=== PATIENT | female | born 1935 | race Caucasian/White ===

== ENCOUNTER → 2017-08-18 | Outpatient (CLI) | payer MEDICARE, OTHER ==
[2017-08-19 09:08] LABS: ALANINE AMINOTRANSFERASE 28 U/L (9-52); ALBUMIN 4.3 g/dL (3.5-5.0); ALKALINE PHOSPHATASE 46 U/L (38-126); ANION GAP 10 (5-19); ASPARTATE AMINO TRANSFERASE 31 U/L (14-36); BILIRUBIN,DIRECT 0.4 mg/dL (0.0-0.4); BILIRUBIN,TOTAL 0.5 mg/dL (0.2-1.3); BLOOD UREA NITROGEN 23 mg/dL (7-20); CALCIUM 9.9 mg/dL (8.4-10.2); CARBON DIOXIDE 27 mmol/L (22-30); CHLORIDE 103 mmol/L (98-107); CHOLESTEROL 189.07 mg/dL (0-200); GLUCOSE 179 mg/dL (75-110); SODIUM 140.2 mmol/L (137-145); TOTAL PROTEIN 6.8 g/dL (6.3-8.2); TRIGLYCERIDES 103 mg/dL (<150)
[2017-08-19 09:19] LABS: DIRECT LDL 81 mg/dL (<100)
[2017-08-20 11:40] LABS: CREATININE URINE 137.7 mg/dL (Not Estab.)
== END ==
LOC: OD 14:35
PROVIDERS: ATTEND Internal Medicine Cardiovascular Disease
DX: E78.2 Mixed hyperlipidemia (principal); I12.9 Hypertensive chronic kidney disease with stage 1 through stage 4 chronic kidney disease, or unspecified chronic kidney disease; E11.22 Type 2 diabetes mellitus with diabetic chronic kidney disease; N18.3 Chronic kidney disease, stage 3 (moderate); Z79.899 Other long term (current) drug therapy
CPT/HCPCS: 36415; 80048; 80061; 80076; 82043; 82570; 83036; 83735

== ENCOUNTER → 2018-02-10 | Outpatient (CLI) | payer MEDICARE, OTHER ==
[2018-02-10 11:08] LABS: ALANINE AMINOTRANSFERASE 23 U/L (9-52); ALBUMIN 3.9 g/dL (3.5-5.0); ALKALINE PHOSPHATASE 44 U/L (38-126); ANION GAP 12 (5-19); ASPARTATE AMINO TRANSFERASE 26 U/L (14-36); BILIRUBIN,DIRECT 0.2 mg/dL (0.0-0.4); BILIRUBIN,TOTAL 0.5 mg/dL (0.2-1.3); BLOOD UREA NITROGEN 31 mg/dL (7-20); CALCIUM 9.7 mg/dL (8.4-10.2); CARBON DIOXIDE 28 mmol/L (22-30); CHLORIDE 105 mmol/L (98-107); CHOLESTEROL 155.72 mg/dL (0-200); GLUCOSE 159 mg/dL (75-110); POTASSIUM 4.8 mmol/L (3.6-5.0); SODIUM 144.5 mmol/L (137-145); TOTAL PROTEIN 6.6 g/dL (6.3-8.2); TRIGLYCERIDES 91 mg/dL (<150)
[2018-02-10 11:19] LABS: DIRECT LDL 62 mg/dL (<100)
== END ==
LOC: OD 09:11
PROVIDERS: ATTEND Internal Medicine Cardiovascular Disease
DX: I10 Essential (primary) hypertension (principal); E78.2 Mixed hyperlipidemia; E83.42 Hypomagnesemia; E11.9 Type 2 diabetes mellitus without complications; Z79.899 Other long term (current) drug therapy
CPT/HCPCS: 36415; 80048; 80061; 80076; 83036; 83735

== ENCOUNTER → 2018-08-23 | Outpatient (CLI) | payer MEDICARE, OTHER ==
[2018-08-23 10:01] LABS: ALANINE AMINOTRANSFERASE 35 U/L (9-52); ALBUMIN 4.4 g/dL (3.5-5.0); ALKALINE PHOSPHATASE 63 U/L (38-126); ANION GAP 12 (5-19); ASPARTATE AMINO TRANSFERASE 36 U/L (14-36); BILIRUBIN,DIRECT 0.2 mg/dL (0.0-0.4); BILIRUBIN,TOTAL 0.3 mg/dL (0.2-1.3); BLOOD UREA NITROGEN 34 mg/dL (7-20); CALCIUM 10.3 mg/dL (8.4-10.2); CARBON DIOXIDE 29 mmol/L (22-30); CHLORIDE 101 mmol/L (98-107); CHOLESTEROL 175.46 mg/dL (0-200); GLUCOSE 228 mg/dL (75-110); POTASSIUM 4.8 mmol/L (3.6-5.0); SODIUM 141.8 mmol/L (137-145); TOTAL PROTEIN 7.1 g/dL (6.3-8.2); TRIGLYCERIDES 88 mg/dL (<150)
[2018-08-23 10:12] LABS: DIRECT LDL 89 mg/dL (<100)
== END ==
LOC: OD 08:42
PROVIDERS: ATTEND Internal Medicine Cardiovascular Disease
DX: E78.2 Mixed hyperlipidemia (principal); I10 Essential (primary) hypertension; E83.42 Hypomagnesemia; Z79.899 Other long term (current) drug therapy
CPT/HCPCS: 36415; 80048; 80061; 80076; 83735

== ENCOUNTER → 2018-09-19 | Outpatient (CLI) | payer MEDICARE, OTHER ==
[2018-09-19 13:19] LABS: ALANINE AMINOTRANSFERASE 34 U/L (9-52); ALBUMIN 4.1 g/dL (3.5-5.0); ALKALINE PHOSPHATASE 63 U/L (38-126); ASPARTATE AMINO TRANSFERASE 36 U/L (14-36); BILIRUBIN,DIRECT 0.1 mg/dL (0.0-0.4); BILIRUBIN,TOTAL 0.4 mg/dL (0.2-1.3); TOTAL PROTEIN 6.7 g/dL (6.3-8.2)
[2018-09-19 14:11] LABS: HEMATOCRIT 37.2 % (36.0-47.0); HEMOGLOBIN 12.3 g/dL (12.0-15.5); MEAN CORPUSCULAR HEMOGLOBIN 28.4 pg (27.0-33.4); MEAN CORPUSCULAR HGB CONC 33.1 g/dL (32.0-36.0); MEAN CORPUSCULAR VOLUME 86 fl (80-97); PLATELET COUNT 297 10^3/uL (150-450); RED BLOOD COUNT 4.33 10^6/uL (3.72-5.28); WHITE BLOOD COUNT 5.5 10^3/uL (4.0-10.5)
[2018-09-21 17:32] LABS: ANION GAP 9 (5-19); BLOOD UREA NITROGEN 42 mg/dL (7-20); CALCIUM 10.7 mg/dL (8.4-10.2); CARBON DIOXIDE 30 mmol/L (22-30); CHLORIDE 99 mmol/L (98-107); GLUCOSE 315 mg/dL (75-110); POTASSIUM 4.7 mmol/L (3.6-5.0); SODIUM 138.1 mmol/L (137-145)
== END ==
LOC: OD 11:48
PROVIDERS: ATTEND Internal Medicine Cardiovascular Disease
DX: E78.2 Mixed hyperlipidemia (principal); E83.42 Hypomagnesemia; E11.9 Type 2 diabetes mellitus without complications; R94.5 Abnormal results of liver function studies; Z79.899 Other long term (current) drug therapy
CPT/HCPCS: 36415; 80048; 80076; 82607; 83036; 83735; 84443; 85027

== ENCOUNTER 2018-11-11 20:46 | Emergency (ER) | payer MEDICARE, OTHER ==
--- NOTE | 2018-11-11 21:45 | RADIOLOGY REPORT (SQ) ---
EXAM DESCRIPTION: XR SHOULDER 2 OR MORE VIEWS COMPLETED DATE/TME: 11/11/2018 00:00 CLINICAL HISTORY: 83 years Female fell down steps yesterday COMPARISON: None. TECHNIQUE: LEFT SHOULDER three view FINDINGS: No acute fractures or dislocations identified. Acromioclavicular joint appears maintained. There is a nodular area in the left upper lobe with central lucency. It is uncertain whether this represents a lesion involving the anterior left rib with that this represents an underlying pulmonary nodule. Recommend CT of the chest. This measures 2.4 cm. IMPRESSION: No acute fracture or dislocation identified. Question cavitary lung lesion in the left upper lobe versus overlying abnormality in the anterior left rib. These changes are new when compared to the study from 2013. Recommend CT
[2018-11-11] MEDS ORDERED: INSULIN REG, HUMAN 100 UNIT/ML 3 ML VIAL (PYX) SUBCUT ONE (22:40)
[2018-11-11 22:55] LABS: ANION GAP 10 (5-19); BLOOD UREA NITROGEN 45 mg/dL (7-20); CALCIUM 9.7 mg/dL (8.4-10.2); CARBON DIOXIDE 30 mmol/L (22-30); CHLORIDE 94 mmol/L (98-107); POTASSIUM 4.7 mmol/L (3.6-5.0); SODIUM 134.3 mmol/L (137-145)
[2018-11-11] MEDS ORDERED: RINGERS SOLUTION,LACTATED 500 ML IV ONE ×2 (22:58→23:28)
--- NOTE | 2018-11-11 22:59 | ER Document Report ---
ED General - General Chief Complaint: Shoulder Injury Stated Complaint: FALL/LEFT SHOULDER INJURY Time Seen by Provider: 11/11/18 21:24 Primary Care Provider: GLENN MADRID MD [Primary Care Provider] - Follow up as needed Notes: Patient is an 83-year-old female past medical history of [id number] diabetes, presents complaining after mechanical fall onto her left shoulder approximate 24 hours ago. Fell approximately 3 steps landing directly onto the left shoulder and did not hit any other part of her body. Since that time is had a dull, throbbing, constant pain to the left shoulder worsened by range of motion. Has not tried nothing for improvement in the pain. Pain is regarded as moderate in nature. No history of similar injuries in the past. She is right- hand dominant. She came to the emergency department primarily tonight because her daughter was worried about her having high blood sugar at home today up to 410. Patient states that her blood sugars are normally well controlled stating that it was as low as 116 yesterday. She does take metformin but does not take any other form of diabetic control medication. She denies chest pain, shortness of breath, syncope, head or neck trauma. No weakness, numbness or confusion. Has not seen her primary care doctor regarding today's concerns. TRAVEL OUTSIDE OF THE [place] IN LAST 30 DAYS: No - Related Data Allergies/Adverse Reactions: prochlorperazine edisylate [From Compazine] Allergy (Verified 07/12/14 13:40) RASH prochlorperazine maleate [From Compazine] Allergy (Verified 07/12/14 13:40) RASH ether Allergy (Uncoded 07/12/14 13:40) Past Medical History - General Information source: Patient, Relative - Social History Smoking Status: Never Smoker Frequency of alcohol use: None Drug Abuse: None Lives with: Family Family History: CAD Patient has suicidal ideation: No Patient has homicidal ideation: No - Past Medical History Cardiac Medical History: Reports: Hx Hypercholesterolemia, Hx Hypertension Denies: Hx Coronary Artery Disease, Hx Heart Attack Pulmonary Medical History: Denies: Hx Asthma, Hx Bronchitis, Hx COPD, Hx Pneumonia Neurological Medical History: Denies: Hx Cerebrovascular Accident, Hx Seizures Endocrine Medical History: Reports: Hx Diabetes Mellitus Type 2 Renal/ Medical History: Denies: Hx Peritoneal Dialysis GI Medical History: Denies: Hx Hepatitis, Hx Hiatal Hernia, Hx Ulcer Musculoskeletal Medical History: Reports Hx Arthritis - FINGERS Infectious Medical History: Denies: Hx Hepatitis Past Surgical History: Reports: Hx Cholecystectomy, Hx Hysterectomy, Hx Orthopedic Surgery. Denies: Hx Mastectomy, Hx Open Heart Surgery, Hx Pacemaker - Immunizations Hx Diphtheria, Pertussis, Tetanus Vaccination: Yes Hx Pneumococcal Vaccination: 06/28/10 Review of Systems - Review of Systems Notes: Constitutional: Negative for fever. Eyes: Negative for visual changes. ENT: Negative for facial injury Cardiovascular: Negative for chest injury. Respiratory: Negative for shortness of breath. Gastrointestinal: Negative for abdominal injury. Genitourinary: Negative for genital injury Musculoskeletal: Positive for left shoulder injury Skin: Negative for laceration/abrasions. Neurological: Negative for head injury. Physical Exam - Vital signs Vitals: Temp Pulse Resp BP Pulse Ox 97.8 F 63 16 125/46 L 100 11/11/18 21:12 11/11/18 21:12 11/11/18 21:12 11/11/18 21:12 11/11/18 21:12 Interpretation: Normal Notes: PHYSICAL EXAMINATION: GENERAL: Well-appearing, no acute distress. Somewhat frail HEAD: Atraumatic, normocephalic. EYES: Pupils equal round and reactive to light, extraocular movements intact, sclera anicteric, conjunctiva are normal. ENT: nares patent, no oral pharyngeal trauma. No hemotympanum, no Oscar's sign, no raccoon eyes. NECK: No midline cervical spine tenderness. Patient able to move their head to 45 bilaterally without any discomfort. LUNGS: Breath sounds clear to auscultation bilaterally and equal. No wheezes rales or rhonchi. HEART: Regular rate and rhythm without murmurs. CHEST WALL: No ecchymosis over the chest wall. ABDOMEN: Soft, nontender, normoactive bowel sounds. No guarding, no rebound. No abdominal bruising EXTREMITIES: Normal range of motion, although has pain with range of motion testing on the left shoulder, no pitting or edema. No long bone deformities. BACK: No midline spinal tenderness, step-offs, or deformities. NEUROLOGICAL: Face symmetric. Tongue protrudes midline. Extraocular motions intact. Pupils are 2 mm and equally reactive. Normal speech, normal gait. 5 out of 5 strength in both the distal and proximal upper and lower extremities bilaterally. Sensation is grossly intact throughout. PSYCH: Normal mood, normal affect. SKIN: Warm, Dry, normal turgor, no rashes or lesions noted. Course - Re-evaluation Re-evalutation: 11/11/18 22:57 Patient presents after mechanical fall onto her left shoulder approximately 24 hours ago. X-ray without any evidence of acute fracture dislocation. Shoulder range of motion is intact both actively and passively although with pain. 5 out of 5 biceps and triceps strength. RMU motor and sensory distribution is intact including against resistance on motor testing. X-ray does incidentally noticed a possible cavitary lesion concerning for malignancy and CT chest was recommended. I did disclose this to the family is requesting the CT chest be performed now. The patient has also been noted to have hyperglycemia. Blood work is pending to determine whether or not there is any concern for HHS or DKA although clinically the patient appears very well and I do not clinically suspect either of these diagnoses. Subcutaneous insulin and IV fluids will be administered. 11/12/18 00:[address] does not demonstrate any evidence of malignancy although shows multiple cavitary lesion. The patient is not having any respiratory symptoms that would suggest an atypical lung infection. I do not believe any immediate treatment is indicated at this time for these incidental findings and I have provided the patient and her family with a copy of the CT report and advised that she requires close outpatient follow-up and likely pulmonary consultation regarding these findings. Patient's A1c is 13 going against the patient's report that she generally has well-controlled blood sugars. I suspect the patient has long- standing uncontrolled blood sugars as indicated by this A1c. Her blood sugar has improved here with IV fluids and insulin. At this time will discharge with return precautions and follow-up recommendations. Verbal discharge instructions given a the bedside and opportunity for questions given. Medication warnings reviewed. Patient is in agreement with this plan and has verbalized understanding of return precautions and the need for primary care follow-up in the next 24-72 hours. - Vital Signs Vital signs: Temp Pulse Resp BP Pulse Ox 97.8 F 63 16 125/46 L 100 11/11/18 21:12 11/11/18 21:12 11/11/18 21:12 11/11/18 21:12 11/11/18 21:12 - Laboratory Result Diagrams: 11/11/18 22:20 Laboratory results interpreted by me: 11/11/18 11/11/18 22:20 22:20 Sodium 134.3 L Chloride 94 L BUN 45 H Creatinine 1.39 H Est GFR ( Amer) 44 L Est GFR (Non-Af Amer) 36 L Glucose 646 H* Hemoglobin A1c % 13.0 H - Diagnostic Test Radiology reviewed: Image reviewed, Reports reviewed Radiology results interpreted by me: 11/11/18 22:59 Left shoulder x-ray: No acute fracture or dislocation Discharge - Discharge Clinical Impression: Pulmonary cavitary lesion Left shoulder pain Qualifiers: Chronicity: acute Qualified Code(s): M25.512 - Pain in left shoulder Hyperglycemia due to type 2 diabetes mellitus Qualifiers: Diabetes mellitus termite exterminator insulin use: without termite exterminator use Qualified Code(s): E11.65 - Type 2 diabetes mellitus with hyperglycemia Condition: Stable Disposition: HOME, SELF-CARE Additional Instructions: Your x-ray of the left shoulder does not show any fracture or dislocation. The CT scan of your chest does not show findings of cancer but does show cavitary lesions of unclear nature. These could be due to infection, a long-standing rheumatologic disease, but are unlikely to be cancer. You need to follow-up with your primary care doctor regarding these CT findings as you are not currently having respiratory symptoms that would indicate a need to be hospitalized. They will likely refer you to pulmonology for further clarification. Your blood sugars are very high today and your A1c is 13 suggestive that your blood sugars have been quite high for some time. You need to follow-up with your primary care doctor regarding your poorly regulated blood sugars. This could also be accounting for your weight loss. Please return to the emergency department immediately if you develop shortness of breath, fever greater than 100.4 F, coughing blood, or any other symptoms that are worrisome to you. Prescriptions: Glipizide [Glipizide Xl] 10 mg PO DAILY #30 [id number] Referrals: GLENN MADRID MD [Primary Care Provider] - Follow up tomorrow
[2018-11-11 23:04] LABS: GLUCOSE 646 mg/dL (75-110)
[2018-11-11 23:14] LABS: VENOUS BLOOD BASE EXCESS 3.1 mmol/L; VENOUS BLOOD PH 7.35 (7.30-7.42)
[2018-11-11] MEDS ORDERED: INSULIN REG, HUMAN 100 UNIT/ML 3 ML VIAL (PYX) IV ONE (23:28)
--- NOTE | 2018-11-12 | RADIOLOGY REPORT (SQ) ---
EXAM DESCRIPTION: CT CHEST WITH IV CONTRAST COMPLETED DATE/TME: 11/11/2018 22:56 CLINICAL HISTORY: 83 years Female abnormality on shoulder xr, ?mass COMPARISON: None. TECHNIQUE: Contiguous axial images were obtained through the chest during the infusion of IV contrast. Reformatted images obtained. MIP reformatted images obtained. This exam was performed according to our department optimization program which includes automated exposure control, adjustment of the mA and/or kv according to patient size and/or use of iterative reconstruction technique. FINDINGS: The abnormality seen on the shoulder x-ray corresponds with a cavitary mass in the posterior aspect of the left upper lobe. There is a small amount of adjacent nodular infiltrate. Additional small amount of infiltrate is seen more medially in the posterior left upper lobe. Additional cavitary foci are present in the right lung apex. Small nodular foci of infiltrate are present in the anterior aspect of the right middle lobe and in the anterior basal segment of the left lower lobe. Differential considerations would include atypical infection such as MADAN. Septic emboli, Margaux's or rheumatoid would be additional considerations. Malignancy is thought less likely. Aorta is normal in caliber without dissection or rupture. No pericardial or pleural effusion. No significant thoracic adenopathy. IMPRESSION: Cavitary lesions in the upper lobes bilaterally with additional small nodular infiltrates in the left lung base and right middle lobe. Findings suggest atypical infectious process such as MADAN. Additional considerations such as septic emboli or granulomatous disease not excluded. Malignancy is thought less likely.
[2018-11-12] MEDS ORDERED: GLIPIZIDE XL 5 MG TAB.ER.24 PO ONE ×2 (00:32→01:20)
[2018-11-12 01:11] VITALS: BP 135/51
== END 2018-11-12 01:35 | disposition home or self-care (01) ==
LOC: ER 20:46
DX: J98.4 Other disorders of lung (principal); M25.512 Pain in left shoulder; E11.65 Type 2 diabetes mellitus with hyperglycemia; E78.00 Pure hypercholesterolemia, unspecified; I10 Essential (primary) hypertension; Z90.49 Acquired absence of other specified parts of digestive tract; Z90.710 Acquired absence of both cervix and uterus; Z79.84 Long term (current) use of oral hypoglycemic drugs
CPT/HCPCS: 99283; 96360; 36415; 82962; 80048; 83036; 82803; 73030; 71260; A9270 ×2; J7120; J1815